=== PATIENT | male | born 1990 | race Caucasian/White ===

== ENCOUNTER 2017-07-12 21:22 | Emergency (ER) | payer MEDICAID, MEDICARE ==
[~2017-07-12] VITALS: Ht 170.2 cm; Wt 86.2 kg
[2017-07-12 21:27] VITALS: BP_SYST 148
[2017-07-12 21:47] VITALS: BP_SYST 148
[2017-07-15 18:08] LABS: CHLAMYDIA TRACHOMATIS NAA Negative (Negative); NEISSERIA GONORRHOEAE NAA Negative (Negative)
== END 2017-07-12 21:47 | disposition home or self-care (01) ==
LOC: SED 21:22
DX: L73.9 Follicular disorder, unspecified (principal)
CPT/HCPCS: 87491; 87591; 99283; 99284